=== PATIENT | male | born 1985 | race Caucasian/White ===

== ENCOUNTER 2025-08-18 12:55 | Emergency (ER) | payer BC ==
[~2025-08-18] VITALS: Ht 175.3 cm; Wt 82.3 kg
[2025-08-18 13:24] LABS: PLATELET COUNT (AUTO) 328 K/uL (150-450); RED BLOOD CELL COUNT(AUTO) 5.09 MIL/uL (4.5-6.0); RED CELL DISTRIBUTION WIDTH 14.4 % (11.5-15.0); WHITE BLOOD COUNT (AUTO) 8.3 K/uL (4.3-11.0)
[2025-08-18 13:38] LABS: CALCIUM, SERUM 8.5 mg/dL (8.5-10.1); CREATININE 0.9 mg/dL (0.6-1.3); SODIUM SERUM 137 mmol/L (136-145); UREA NITROGEN, BLOOD 13 mg/dL (7-18)
[2025-08-18] MEDS ORDERED: KETOROLAC TROMETHAMINE 15 MG/ML VIAL ONE (14:24)
[2025-08-18] MEDS: KETOROLAC TROMETHAMINE 15 MG/ML VIAL IV ONE (14:28)
[2025-08-18] MEDS ORDERED: PROPRANOLOL LA 60 MG CAP.SA.24H PO SCH (14:30)
[2025-08-18] MEDS: PROPRANOLOL LA 60 MG CAP.SA.24H PO ONE (14:53)
[2025-08-18] MEDS ORDERED: PROP20TA7 PO (15:05)
[2025-08-18 15:26] VITALS: BP 121/79; TEMP 98.5; O2SAT 97
== END 2025-08-18 15:27 | disposition home or self-care (01) ==
LOC: ER 12:55
DX: R07.89 Other chest pain (principal); F41.0 Panic disorder [episodic paroxysmal anxiety]; R42 Dizziness and giddiness; R06.4 Hyperventilation; R06.02 Shortness of breath; F12.90 Cannabis use, unspecified, uncomplicated
CPT/HCPCS: 36415; 71045-TC; 80048-TC; 84484-TC; 85025-TC; J1885